=== PATIENT | male | born 2000 | race Two or more races ===

== ENCOUNTER → 2023-02-02 | Emergency (ER) | payer OTHER ==
[~2023-02-02] VITALS: Ht 175.3 cm; Wt 70.3 kg
== END | disposition home or self-care (01) ==
LOC: ER 22:35
DX: S01.121A Laceration with foreign body of right eyelid and periocular area, initial encounter (principal); W18.30XA Fall on same level, unspecified, initial encounter; Y93.67 Activity, basketball; Y92.9 Unspecified place or not applicable; Y99.9 Unspecified external cause status

== ENCOUNTER 2023-02-08 10:41 | Emergency (ER) | payer OTHER ==
[~2023-02-08] VITALS: Ht 176.5 cm; Wt 74.8 kg
== END 2023-02-08 14:03 | disposition home or self-care (01) ==
LOC: ER
DX: Z48.02 Encounter for removal of sutures (principal)